=== PATIENT | female | born 1955 | race Caucasian/White ===

== ENCOUNTER → 2017-03-08 | Outpatient (CLI) | payer BC ==
[~2017-03-08] VITALS: Ht 165.1 cm; Wt 122.3 kg
[~2017-03-08] MED LIST: ACIPHEX 20 MG T20 MG PO; ADVAIR 250-501 EACH PO; ADVAIR 500-501 EACH INH; ALBUTEROL0.63 MG/3 IH; APAP500 PO; ASTELIN30 ML NS; ENALAPRIL MALEA20 MG PO; FLEXERIL PO; JANUMET 50-5001 EACH PO; JANUMET XR 50-1 EAC1 PO; METROGEL55 GM TP; MOBIC15 MG PO; NASONEX17 GM NS; PATANOL5 ML OPHTHALMIC; PROAIR HFA8.5 GM IH; PROAIR HFA8.5 GM INH; SINGULAIR 10 MG10 M1 PO; VITAMIN D 5050000 I1 PO; ZOCOR 20 MG TAB20 M1 PO
[2017-03-08 14:24] VITALS: BP 163/87
== END | disposition home or self-care (01) ==
LOC: PAIN 06:48
DX: M54.16 Radiculopathy, lumbar region (principal); J45.909 Unspecified asthma, uncomplicated; I10 Essential (primary) hypertension; E11.9 Type 2 diabetes mellitus without complications; D64.9 Anemia, unspecified; M19.90 Unspecified osteoarthritis, unspecified site; Z88.8 Allergy status to other drugs, medicaments and biological substances; Z79.899 Other long term (current) drug therapy; Z98.890 Other specified postprocedural states